=== PATIENT | male | born 1990 | race Caucasian/White ===

== ENCOUNTER → 2020-12-26 | Outpatient (CLI) | payer OTHER ==
--- NOTE | 2020-12-26 12:03 | RAD ---
CLINICAL HISTORY: Reason: RT TESTICULAR PAIN AND SWELLING X 4 DAYS / Spl. Instructions: / History: COMPARISON: None available. TECHNIQUE: Ultrasound images of the scrotum was performed with de anda-scale and color doppler. FINDINGS: The right testis measures 5.4 x 3.8 x 2.6. The left testis measures 5.3 x 3.4 x 3.1. There is no intratesticular abnormality. Testicular vascularity is symmetric and within normal limit s. The right epididymis appears a thickened and the demonstrate the increased Doppler vascularity. There is also a small right hydrocele. The venous and the arterial waveforms are demonstrated over the testicles with no evidence of torsion . The mildly prominent the veins in the right testicle vicinity is suggestive of mild the varicocele. T he vascularity is exaggerated with inflammation. . IMPRESSION: Findings compatible with the right epididymitis. No evidence of testicular torsion. Critical result: Findings discussed by phone with ordering physician at 12/26/2020 11:59 AM. Results are not considere d critical however ordering physician requested the phone call to rule out torsion. RESULT CODE: (C) Electronically signed by: Marcio Hearn MD (12/26/2020 12:00 PM) [id number]
== END ==
LOC: US 11:05
PROVIDERS: ATTEND Family Medicine
DX: N43.3 Hydrocele, unspecified (principal); N50.811 Right testicular pain; N50.89 Other specified disorders of the male genital organs
CPT/HCPCS: 76870